=== PATIENT | male | born 1980 | race Hispanic/Latino ===

== ENCOUNTER → 2021-01-15 | Outpatient (CLI) | payer OTHER, SELFPAY ==
--- NOTE | 2021-01-15 16:10 | CYSPIN_PTH ---
PATIENT: ESPERANZA AVALOS [facility] U[facility][id number] AGE/SX: 40/M ROOM: RE01/15/[address]: Dr. Sajan Garber MD : 1980 BED: DIS: 01/15/2021 SPEC #: [id number] RECD: 01/16/21 08:16 STATUS: CARMEN NEVES #: [id number] ROMAN: 01/15/21 16:[address]: Sajan Garber DEPT: CYTOLOGY RECD BY: Priya Raymond Tissues: Urine Procedures: Pap Stain (control) Special Stain Group II Cytospin Fluid HEADER OPERATION: Not noted PRE-OP DIAGNOSIS: Hydronephrosis TISSUE SUBMITTED: Urine for cytology DIAGNOSIS CYTOLOGY Urine for cytology (cytospin): Negative for malignant cells. See comment. WEI:radha 01/16/2021 COMMENT Clinical correlation and appropriate follow up are necessary. CYTOLOGY STUDY Slides are reviewed. CYTOLOGY GROSS Received is 60 ml of yellow clear fluid labeled with the patient's name and and designated per the requisition as urine. Submitted for cytology preparation. / radha 01/16/2021 TC:4 CPT: 79150
[2021-01-15 17:20] LABS: Cytology, Body Fluid / CSF SEE PATHOLOGY REPORT
== END | disposition home or self-care (01) ==
PROVIDERS: Referring Provider Urology; Visit Provider Urology
DX: N13.39 Other hydronephrosis (principal)
CPT/HCPCS: 88108; 88313